=== PATIENT | female | born 1945 | race Caucasian/White ===

== ENCOUNTER 2018-03-20 14:07 | Outpatient (CLI) | payer MEDICARE ==
--- NOTE | 2018-03-20 15:46 | MMO ---
BILATERAL SCREENING MAMMOGRAM: HISTORY: A 72-year-old female for screening mammography. COMPARISON: 01/27/12. FINDINGS: Bilateral MLO and CC views of the breasts show scattered fibroglandular breast tissue. Benign-appear ing calcifications are seen in both breasts. There is no evidence of suspicious mass, suspicious c lustered microcalcifications, or area of architectural distortion Interpretation of this mammogram was performed with the assistance of computer-aided detection. IMPRESSION: BI-RADS category 2 - benign findings. Annual screening mammography is recommended. BIRADS 2: Benign Finding(s) Routine annual screening mammography (for women over age 40) POS: [facility]
== END 2018-03-20 14:08 | disposition home or self-care (01) ==
LOC: SCSMAMMO 14:07
PROVIDERS: ATTEND Family Medicine
DX: Z12.31 Encounter for screening mammogram for malignant neoplasm of breast (principal)
CPT/HCPCS: 77067

== ENCOUNTER 2018-11-28 12:37 | Outpatient (CLI) | payer MEDICARE ==
[~2018-11-28 12:37] MED LIST: Gadobenate Dimeglumine 529 MG/1 ML (20ML VIAL) ONE
--- NOTE | 2018-11-28 15:25 | MRI ---
MRI OF BRAIN WITH AND WITHOUT CONTRAST: INDICATION: Mild cognitive impairment (G31.84). History of amnesia, dizziness, gait imbalance, and shakiness. COMPARISON: Prior exams 02/21/2017 and 11/03/2016. FINDINGS: There is mild chronic microvascular ischemic disease. Ventricular system is normal in size. No acut e territorial infarction, intracranial mass effect, or midline shift. No hemorrhagic susceptibility is present within the brain parenchyma. Skull base flow voids are maintained. There is a partially empty sella. No pathologic intraaxial enhancement. An enhancing extraaxial mass overlies the left f rontal convexity that measured 12 mm AP x 12 mm transverse most consistent with a meningioma. IMPRESSION: 1. No acute intracranial abnormalities. 2. Mild chronic ischemic disease. 3. Left frontal convexity meningioma. POS: [facility]
== END 2018-11-28 12:38 | disposition home or self-care (01) ==
LOC: SCSMRI 12:37
PROVIDERS: ATTEND Psychiatry & Neurology Neurology
DX: G31.84 Mild cognitive impairment of uncertain or unknown etiology (principal); D32.0 Benign neoplasm of cerebral meninges; I67.82 Cerebral ischemia
CPT/HCPCS: 70553; 82565; A9579

== ENCOUNTER 2019-06-09 15:04 | Observation (INO) | payer MEDICARE ==
--- NOTE | 2019-06-09 16:39 | PDOC.FPRHP ---
- History of Present Illness Chief Complaint: dizziness History of Present Illness: PCP: Amy Resident: Ayaka Burch Pt is a 73yo F with PMH of hypothyroidism and depression coming in from [facility] for confusion. Pt is a poor historian and reports poor memory and no recollection of today's events. Dtr is not present to provide hx. Trouble with memory for 7 years. Dtr number- [phone], but not available by phone on two attempts. Per chart review, had a brain MRI ordered by Dr. Villatoro in 11/2018 that showed a likely 12mm x 12mm meningioma. No other records to suggest subsequent workup. Plan to discuss with PCP Dr. Reyes. - Allergies/Adverse Reactions Allergies Allergy/AdvReac Type Severity Reaction Status Date / Time phenytoin [From Dilantin] Allergy Verified 06/09/19 18:11 - Home Medications Comments: per chart review, synthroid and sertraline, unconfirmed - History Obtained from previous documents as pt not able to provide and dtr not available by phone. PMHx: Hypothyroidism Depression PSHx: none FHx: none Social: social etoh per chart review. - Review of Systems ROS unobtainable: due to mental status Neurological: reports: other (dizziness and balance problems). denies: weakness - Vital signs BP: 141/83 HR: 79 RR: 16 Tmax: 97.9 Pox: 95% on RA Wt: 77kg - Physical Exam Constitutional: NAD, awake, alert and oriented HEENT: normocephalic and atraumatic, PERRLA, EOMI, grossly normal vision, grossly normal hearing, MMM Heart: RRR, normal S1/S2 Lungs: CTAB, no respiratory distress Abdomen: soft, non-tender, bowel sounds present Musculoskeletal: normal structure, normal tone, ROM grossly normal Neurological: no focal deficit, CN II-XII intact, normal sensation -Neurological: no dysdiadokinesia, normal finger to nose test Skin: no rash/lesions, capillary refill <2 seconds Psychiatric: normal mood and affect -Psychiatric: poor remote and recent memory FMR H&P: Results - Labs Lab results: Laboratory Tests 04/30/12 06/09/19 06/09/19 14:40 13:25 13:28 WBC 5.7 RBC 4.18 L Hgb 12.7 Hct 39.7 MCV 95.0 MCH 30.4 MCHC 32.0 RDW 12.6 Plt Count 252 MPV 6.5 L Neutrophils % 64.2 Lymphocytes % 27.6 Sodium Potassium Chloride Carbon Dioxide Anion Gap BUN Creatinine Estimated GFR (MDRD) Glucose POC Glucose 120 H Calcium Total Bilirubin AST ALT Alkaline Phosphatase Creatine Kinase Troponin I Serum Total Protein Albumin/Globulin Ratio Urine Color Urine Clarity Urine pH Urine Nitrate POSITIVE H Urine Protein Urine Glucose (UA) Urine Ketones Urine Blood Urine Nitrite Urine Bilirubin Urine Urobilinogen Ur Leukocyte Esterase Urine RBC Urine WBC Ur Squamous Epith Cells Urine Bacteria 06/09/19 06/09/19 06/09/19 13:28 13:32 13:32 WBC RBC Hgb Hct MCV MCH MCHC RDW Plt Count MPV Neutrophils % Lymphocytes % Sodium 134 L Potassium 4.1 Chloride 97 L Carbon Dioxide 25 Anion Gap 16 BUN 15 Creatinine 0.93 Estimated GFR (MDRD) 59 Glucose 119 H POC Glucose Calcium 9.4 Total Bilirubin 0.7 AST 25 ALT 12 Alkaline Phosphatase 72 Creatine Kinase 116 Troponin I Less than 0.010 Serum Total Protein 7.2 Albumin/Globulin Ratio 1.5 Urine Color Urine Clarity Urine pH Urine Nitrate Urine Protein Urine Glucose (UA) Urine Ketones Urine Blood Urine Nitrite Urine Bilirubin Urine Urobilinogen Ur Leukocyte Esterase Urine RBC Urine WBC Ur Squamous Epith Cells Urine Bacteria 06/09/19 14:11 WBC RBC Hgb Hct MCV MCH MCHC RDW Plt Count MPV Neutrophils % Lymphocytes % Sodium Potassium Chloride Carbon Dioxide Anion Gap BUN Creatinine Estimated GFR (MDRD) Glucose POC Glucose Calcium Total Bilirubin AST ALT Alkaline Phosphatase Creatine Kinase Troponin I Serum Total Protein Albumin/Globulin Ratio Urine Color Yellow Urine Clarity Clear Urine pH 7.0 Urine Nitrate Urine Protein Negative Urine Glucose (UA) Negative Urine Ketones Negative Urine Blood Negative Urine Nitrite Negative Urine Bilirubin Negative Urine Urobilinogen 1.0 Ur Leukocyte Esterase Small H Urine RBC None Seen Urine WBC None Seen Ur Squamous Epith Cells 0-3 Urine Bacteria None Seen - Radiology Interpretation CT scan - head Status: image reviewed by me, report reviewed by me Additional comment: No intracranial findings. FMR H&P: A/P - Problem List (1) Memory deficit Current Visit: Yes Status: Acute Code(s): R41.3 - OTHER AMNESIA (2) Meningioma Current Visit: Yes Status: Acute Code(s): D32.9 - BENIGN NEOPLASM OF MENINGES, UNSPECIFIED (3) UTI (urinary tract infection) Current Visit: Yes Status: Suspected - Plan AMS Unk baseline, no hx provided by pt. DDx includes Dementia vs Meningioma. - CThead negative, CBC, CMP wnl - UA with possible UTI, Ucx pending - MRI pending - TSH, b12, and RpR pending Hypothyroidism - TSh pending Depression - unsure home medication, pending med rec. Possible UTI - +LE and nitirtes, asymptomatic - Ucx pending DVT Ppx: SCD GI PPx: none Code status: Full FMR H&P: Upper Level - Plan Date/Time: 06/09/19 0363 I, [], have evaluated this patient and agree with findings/plan as outlined by electrical engineering intern resident. Pertinent changes/additions are listed here. Addendum - Attending - Attending Attestation Date/Time: 06/09/192016 I personally evaluated the patient and discussed the management with Dr. Burch and Jenn. I agree with the History, Examination, Assessment and Plan documented above with any addition or exceptions noted below. The patient is being admitted for altered mental status. She is unable to provide any history saying she doesn't remember what happened or why she was taken to the ER. The ER report shows she had dysarthria and presented to the [facility] for a stroke alert. Neuro exam is normal except for poor memory. We have attempted to call the patient's daughter but have not had an answer. Will get MRI, check additional labs. Urine culture pending.
[2019-06-09] MEDS ORDERED: Aspirin 325 MG TAB PO SCH (17:15)
[2019-06-09 18:00] VITALS: BMI 31.1
[2019-06-09 19:24] LABS: Syphilis Antibody Nonreactive (Nonreactive); Syphilis Antibody Index 0.03 S/CO (<1.00 Non-Reactive)
[2019-06-10 04:58] LABS: Anion Gap 14 mmol/L (10-20); BUN (Urea Nitrogen) 14 mg/dL (9.8-20.1); Calc. Creatinine Clearance 76 mL/min (70-130); Calcium 9.1 mg/dL (7.8-10.44); Carbon Dioxide 20 mmol/L (23-31); Chloride 108 mmol/L (98-107); Estimated GFR-MDRD 70; Glucose 89 mg/dL (83-110); Potassium 3.8 mmol/L (3.5-5.1); Sodium 138 mmol/L (136-145)
[2019-06-10 05:11] LABS: Hemoglobin 12.3 g/dL (12.0-16.0); Lymphocytes 39 % (21-51); MDiff Complete? YES; Mean Corpuscular HGB CONC 34.3 g/dL (32.0-36.0); Mean Corpuscular Hemoglobin 32.9 pg (27.0-31.0); Mean Corpuscular Volume 95.8 fL (78.0-98.0); Mean Platelet Volume 7.2 fL (7.4-10.4); Monocytes 6 % (0-10); Neutrophil 55 % (42-75); Platelet Count 220 thou/uL (130-400); Platelet Morphology Comment Appears Adequate; RBC Distribution Width 12.2 % (11.5-14.5); RBC Morphology Normal; Red Blood Cell (RBC) Count 3.73 mill/uL (4.20-5.40); White Blood Cell (WBC) Count 4.2 thou/uL (4.8-10.8)
--- NOTE | 2019-06-10 06:24 | PDOC.FM ---
- Subjective Subjective: Patient reports feeling well and has no complaints. Says she feels like her normal self and does not remember what happened prior to admission. Daughter not present in room to give any other history. - Objective MAR Reviewed: Yes Vital Signs & Weight: Vital Signs (12 hours) Temp Pulse Resp BP Pulse Ox 06/10/19 04:00 98.0 F 75 16 118/64 98 06/10/19 00:00 97.9 F 70 16 123/61 97 06/09/19 20:00 98.1 F 77 16 115/57 L 96 Weight Weight 77.156 kg I&O: 06/08/19 06/09/19 06/10/19 06:59 06:59 06:59 Intake Total 433 Balance 433 Result Diagrams: 06/10/19 04:24 06/10/19 04:24 Phys Exam - Physical Examination Constitutional: NAD HEENT: moist MMs Respiratory: no wheezing, clear to auscultation bilateral Cardiovascular: RRR Gastrointestinal: soft, non-tender, positive bowel sounds Musculoskeletal: no edema Neurological: non-focal, moves all 4 limbs Psychiatric: normal affect, A&O x 3 Skin: normal turgor, cap refill <2 seconds Dx/Plan (1) Memory deficit Code(s): R41.3 - OTHER AMNESIA Status: Acute (2) Meningioma Code(s): D32.9 - BENIGN NEOPLASM OF MENINGES, UNSPECIFIED Status: Acute - Plan Plan: AMS - DDx includes Dementia vs Meningioma. Infectious cause less likely. RPR negative and B12 wnl. - CThead negative, CBC, CMP wnl - UA with possible UTI, Ucx pending - MRI pending to rule out change in meningioma as cause Hypothyroidism - TSH 0.06, T4 1.12 - unknown synthroid dose, will get med rec today Depression - sertraline, unknown dose Possible UTI - +LE and nitirtes, asymptomatic - Ucx pending DVT Ppx: SCD GI PPx: none Code status: Full Dispo: pending further workup and will discuss with daughter to get more history. Addendum - Attending - Attending Attestation Date/Time: 06/10/19 1200 I personally evaluated the patient and discussed the management with Dr. Dixon. I agree with the History, Examination, Assessment and Plan documented above with any addition or exceptions noted below. Patient here for encephalopathy that has now resolved per daughter. Patient is at baseline. She is going for MRI today to evaluate her chronic meningioma and ensure no change. Consider transient global amnesia or worsening depression resulting in memory issues if meningioma stable. Otherwise her labs and imaging studies do not indicate a serious cause of her symptoms.
[2019-06-10 08:01] VITALS: TEMP 97.7
[2019-06-10] MEDS ORDERED: Prevnar 13-Val Conj/PF 0.5 ML SYRINGE IM ONE (09:00)
[2019-06-10 11:45] VITALS: BP 135/61
--- NOTE | 2019-06-10 12:14 | MRI ---
BRAIN MRI WITH AND WITHOUT CONTRAST: Date: 06/10/19 COMPARISON: 11/28/[address] dated 06/09/19. CLINICAL HISTORY: Altered mental status. History of meningioma. FINDINGS: Stable enhancing extra-axial oval mass overlying the high left frontal convexity, laterally is stable , approximately 12 mm in diameter. No new mass effect or significant midline shift. Ventricular syste m is stable in size and morphology. There is no acute territorial infarction. Mild chronic ischemic d isease of the cerebral white matter is present. There is signal alteration related to hyperostosis of the inner table of the calvarium. Grossly stable, global atrophy is present. IMPRESSION: 1. No acute intracranial abnormalities. 2. Stable high left frontal convexity meningioma. POS: [facility]
--- NOTE | 2019-06-11 15:28 | DIS ---
DATE OF ADMISSION: 06/09/2019 DATE OF DISCHARGE: 06/10/2019 RESIDENT: Alondra Dixon DO CONSULTS: None. PROCEDURE PERFORMED: On 06/10/2019, brain MRI showed no acute intracranial abnormalities, stable high left frontal convexity meningioma measuring 12 mm in diameter. PRIMARY DIAGNOSIS: Transient global amnesia. SECONDARY DIAGNOSES: 1. Hypothyroidism. 2. Depression. DISCHARGE MEDICATIONS: 1. Simvastatin 20 mg p.o. at bedtime. 2. Sertraline 150 mg p.o. daily. 3. Levothyroxine 100 mcg p.o. daily. 4. Bupropion XL 150 mg p.o. daily. 5. Flexeril 10 mg p.o. t.i.d. p.r.n. 6. Multivitamin 1 capsule p.o. daily. 7. Omeprazole 20 mg p.o. daily. 8. Vitamin D3 of 2000 units p.o. daily. 9. Aspirin 81 mg p.o. daily. HOSPITAL COURSE: A 73-year-old female presented as a transfer from the [facility] for confusion and altered mental status. The patient had no recollection of the day's events. She was admitted for observation. She had an MRI with the results noted as above. The daughter was present the following morning and was able to provide more history. The patient had a sudden onset of change in mental status and loss of memory, which prompted admission. After several hours , daughter was unable to remember the exact timeline, the patient spontaneously improved and returned to baseline mental status. For the rest of the hospitalization, she was at baseline. The MRI showed no changes. Relevant labs include a TSH of 0.06 and free T4 of 1.12, vitamin B12 of 270. Syphilis, nonreactive. It appears the patient underwent a global amnesia event. The patient was stable and at baseline at the time of discharge. DISPOSITION: Stable. DISCHARGE INSTRUCTIONS: 1. Location: Home. 2. Diet: Regular. 3. Activity: As tolerated. 4. Follow up with PCP, Dr. Reyes within the next week. Job ID: [id number] MTDD
== END 2019-06-10 14:24 | disposition home or self-care (01) ==
LOC: ERS 15:04 → 2SE 15:15
PROVIDERS: ADMIT Family Medicine; ATTEND Family Medicine
DX: G45.4 Transient global amnesia (principal); F32.9 Major depressive disorder, single episode, unspecified; E03.9 Hypothyroidism, unspecified; R42 Dizziness and giddiness; Z79.899 Other long term (current) drug therapy; Z88.8 Allergy status to other drugs, medicaments and biological substances
CPT/HCPCS: 70553; 80048; 82607; 84439; 84443; 85025; 86780; 97139; 99285; G0378 ×3; 36415

== ENCOUNTER 2020-01-02 09:51 | Outpatient (CLI) | payer MEDICARE ==
--- NOTE | 2020-01-02 13:34 | MRI ---
MRI of thebrain: 01/02/2020 COMPARISON:06/10/2019 HISTORY:Headache, meningioma TECHNIQUE: Multiplanar multisequence MR imaging of thebrain with and without contrast Findings:The diffusion weighted imaging demonstrates no evidence for acute infarction and the axial g radient echo imaging demonstrates no evidence for intracranial hemorrhage. There is an extra-axial mass near the vertex laterally in the left frontal region measuring 1.3 cm in AP dimension, stable. T his lesion demonstrates avid postcontrast enhancement and is most consistent with a stable meningioma. The paranasal sinuses appear grossly unremarkable. Arterial flow voids at the axial level of the skull base appear grossly unremarkable on the T2-weight ed imaging. The postcontrast imaging demonstrates no additional area of abnormal enhancement. IMPRESSION:Findings suggesting a stable meningioma in the left frontal region. No acute findings.
== END 2020-01-02 09:52 | disposition home or self-care (01) ==
LOC: SCSMRI 09:51
PROVIDERS: ATTEND Neurological Surgery
DX: D33.2 Benign neoplasm of brain, unspecified (principal)
CPT/HCPCS: 70553